=== PATIENT | female | born 1980 | race Two or more races ===

== ENCOUNTER 2023-04-17 10:12 | Emergency (ER) | payer MEDICAID, OTHER ==
[~2023-04-17] VITALS: Ht 152.4 cm; Wt 58.9 kg
[2023-04-17 10:56] VITALS: BP 140/103; TEMP 98.1
[2023-04-17 10:58] VITALS: PULSE 98; RESP 16; O2SAT 97
[2023-04-17 11:20] LABS: Urine Bacteria NONE SEEN /hpf (None Seen); Urine Blood Negative /uL (Negative); Urine Clarity HAZY (Clear); Urine Color Yellow (Yellow); Urine Mucus FEW (None Seen); Urine Protein, UAD 1+ (Negative); Urine Specific Gravity 1.034 (1.001-1.035); Urine WBC 3 /hpf (0 - 5)
[2023-04-17 11:35] LABS: Alcohol, Urine < 3.0 mg/dL (0-10); Amphetamine Screen, Urine POSITIVE (NEGATIVE); Barbiturate Scree,Urine NEGATIVE (NEGATIVE); Benzodiazephine Screen, Urine NEGATIVE (NEGATIVE); Cannabinoid Screen, Urine NEGATIVE (NEGATIVE); Cocaine Screen, Urine NEGATIVE (NEGATIVE)
[2023-04-17 11:42] LABS: Opiate Scree,Urine NEGATIVE (NEGATIVE); Phencyclidine Screen, Urine NEGATIVE (NEGATIVE)
== END 2023-04-17 12:34 | disposition home or self-care (01) ==
LOC: ER 10:12
DX: T40.411A Poisoning by fentanyl or fentanyl analogs, accidental (unintentional), initial encounter (principal); F41.9 Anxiety disorder, unspecified; F17.210 Nicotine dependence, cigarettes, uncomplicated; F15.90 Other stimulant use, unspecified, uncomplicated; Y92.89 Other specified places as the place of occurrence of the external cause
CPT/HCPCS: 80307; 81001; 81025

== ENCOUNTER 2023-07-14 10:40 | Emergency (ER) | payer MEDICAID ==
[~2023-07-14] VITALS: Ht 152.4 cm; Wt 64.5 kg
[2023-07-14 12:54] VITALS: BP 129/83; PULSE 94; RESP 18; TEMP 97.7; O2SAT 95
[2023-07-14] MEDS ORDERED: CEPH500C PO (13:37)
== END 2023-07-14 13:37 | disposition home or self-care (01) ==
LOC: ER 10:40
DX: L02.212 Cutaneous abscess of back [any part, except buttock and flank] (principal); F17.210 Nicotine dependence, cigarettes, uncomplicated; F12.10 Cannabis abuse, uncomplicated; Z88.2 Allergy status to sulfonamides

== ENCOUNTER 2023-07-23 13:14 | Emergency (ER) | payer MEDICAID ==
[~2023-07-23] VITALS: Ht 152.4 cm; Wt 68.1 kg
[~2023-07-23 13:14] MED LIST: CEPH500C PO
[2023-07-23] MEDS ORDERED: SODIUM CHLORIDE 0.9% 1,000 ML IV ONE (13:30)
[2023-07-23 14:57] LABS: Basophils # (auto) 0 10 ^3/uL (0-0.2); Basophils % (auto) 0.1 % (0.0-2.0); Eosinophils # (auto) 0 10 ^3/uL (0-0.8); Hematocrit 44.6 % (36.0-46.0); Lymphocytes # (auto) 1.1 10 ^3/uL (0.4-5.4); Lymphocytes % (auto) 11.1 % (10.0-50.0); Mean Corpuscular Hemoglobin 29.3 pg (28.0-32.0); Mean Corpuscular Hgb Conc. 33.6 g/dL (32.0-36.0); Mean Corpuscular Volume 87.3 fL (80.0-100.0); Monocytes # (auto) 0.2 10 ^3/uL (0-1.3); Monocytes % (auto) 2.4 % (0.0-12.0); Neutrophils # (auto) 8.7 10 ^3/uL (1.6-8.6); Neutrophils % (auto) 86.4 % (37.0-80.0); Red Blood Cells 5.11 10^6/uL (4.0-5.20); Red Cell Distribution Width 15.6 % (11.8-14.3); White Blood Cell 10.1 10^3/uL (4.4-10.8)
[2023-07-23 15:15] LABS: Alanine Aminotransferase 16 U/L (7-40); Albumin 4.6 g/dL (3.2-4.8); Alkaline Phosphatase 77 U/L (46-116); Anion Gap 9 (5-15); Aspartate Aminotransferase 14 U/L (13-40); BUN/Creatinine Ratio 12.7 (10.0-20.0); Bilirubin, Total 0.4 mg/dL (0.2-1.0); Blood Alcohol 4.5 mg/dL (<10); Blood Urea Nitrogen 9 mg/dL (9-23); Carbon Dioxide 23 mmol/L (20-30); Chloride 105 mmol/L (98-107); Glucose 149 mg/dL (74-106); Potassium 3.5 mmol/L (3.5-5.1); Sodium 137 mmol/L (136-145); Total Protein 7.6 g/dL (5.7-8.2)
[2023-07-23 15:16] LABS: Acetaminophen < 2.0 UG/ML (10.0-20.0)
[2023-07-23 15:31] LABS: Salicylate < 3.0 mg/dL (2.8-20.0)
[2023-07-23] MEDS ORDERED: chlordiazePOXIDE HCL 5 MG CAP PO ONE (16:30)
[2023-07-23] MEDS ORDERED: THIAMINE 100mg/ml INJ (200mg/2ml VIAL) IV ONE (16:30)
[2023-07-23 20:08] VITALS: BP 109/80; PULSE 93; RESP 16; TEMP 97.4; O2SAT 98
[2023-07-23] MEDS: SODIUM CHLORIDE 0.9% 1,000 ML IV ONE ×2 (21:06→22:00)
== END 2023-07-23 22:10 | disposition home or self-care (01) ==
LOC: ER 13:14
DX: F15.10 Other stimulant abuse, uncomplicated (principal); R73.9 Hyperglycemia, unspecified; E03.9 Hypothyroidism, unspecified; F17.210 Nicotine dependence, cigarettes, uncomplicated
CPT/HCPCS: 36415; 80053; 80320; 80329; 85025